=== PATIENT | female | born 1940 | race Caucasian/White ===

== ENCOUNTER 2016-09-25 23:58 | Observation (INO) | payer OTHER ==
[~2016-09-25] VITALS: Ht 152.4 cm; Wt 62.1 kg
[~2016-09-25 23:58] MED LIST: ASPIRIN81 M2 PO; BENICAR20 MG PO; CRESTOR40 MG PO; ERGOCALCIF50000 UNIT PO; METOPROLOL SUCC50 MG PO; MOTION SICKNESS25 M4 PO; NEXIUM40 MG PO; PHENYTOIN SODI100 M1 PO; PRO CAL PO; ZETIA10 MG PO
[2016-09-26 00:48] LABS: HEMATOCRIT 37.5 % (36.0-46.0); MCH 31.2 PG (29.0-34.0); MCHC 33.1 G/DL (30.0-36.0); MCV 94.5 FL (83-99); MEAN PLAT.VOLUME 9.7 uM^3 (9.5-12.4); PLATELET COUNT 125 K/uL (156-360); RBC DIS.WIDTH-CV 11.9 % (11.8-14.6); RBC DIS.WIDTH-SD 41.6 % (39-53); RED BLOOD COUNT 3.97 M/uL (3.80-5.20); WHITE BLOOD COUNT 5.1 K/uL (4.1-10.2)
[2016-09-26 01:10] LABS: TROP-I INTERPRETATION NEGATIVE; TROPONIN-I < 0.01 ng/mL (0.0-0.30)
[2016-09-26 01:26] LABS: CHLORIDE 104 mEq/L (99-109); POTASSIUM 3.5 mEq/L (3.7-5.4); SODIUM 140 mEq/L (136-147)
[2016-09-26 01:28] LABS: GLUCOSE 159 mg/dL (70-99)
[2016-09-26 01:29] LABS: ANION GAP 13 MEQ/L (2-14)
[2016-09-26 01:32] LABS: GFR ESTIMATE (CALCULATED) > 59 mL/min/
[2016-09-26 01:33] LABS: UREA NITROGEN (BUN) 13 mg/dL (9-23)
[2016-09-26] MEDS ORDERED: ZETIA10 MG PO (03:02)
[2016-09-26] MEDS ORDERED: PERPHEN-AMITRI1 EACH PO (03:05)
[2016-09-26 05:03] VITALS: BP 117/55
[2016-09-26 07:35] VITALS: BP 127/68
[2016-09-26 08:56] LABS: ADD MIUA? NO; BILIRUBIN NEGATIVE; BLOOD NEGATIVE; COLOR COLORLESS ((YELLOW)); GLUCOSE (STRIP) NEGATIVE; KETONES NEGATIVE; LEUKOCYTES NEGATIVE; NITRITE NEGATIVE; PROTEIN (STRIP) NEGATIVE; SPECIFIC GRAVITY 1.001 (1.000-1.030); UCUL ADDED? NO; UROBILINOGEN 0.2 MG/DL (0.2-1.0)
[2016-09-26 09:40] LABS: TROP-I INTERPRETATION NEGATIVE; TROPONIN-I < 0.01 ng/mL (0.0-0.30)
[2016-09-26 11:40] VITALS: BP 158/77
[2016-09-26 13:43] LABS: Estimated Average Glucose 137 mg/dL (70-123); HEMOGLOBIN A1c (GLYCOHEMOGLOB) 6.4 % HGB (Below 5.7)
== END 2016-09-26 14:00 | disposition home health service (06) ==
LOC: EME 23:58 → EDOF 09-26 03:27 → 5WEST 09-26 04:52
PROVIDERS: Emergency Medicine; Hospitalist
DX: R55 Syncope and collapse (principal); I25.10 Atherosclerotic heart disease of native coronary artery without angina pectoris; Z95.1 Presence of aortocoronary bypass graft; E11.9 Type 2 diabetes mellitus without complications; I10 Essential (primary) hypertension; E78.5 Hyperlipidemia, unspecified
CPT/HCPCS: 70450; 71010; 80048; 80185; 81003; 83036; 83735; 84484; 85027; 93005; 93306; 93880; 95819; 99281; 99285; G0378; J1644; J7030; Q0175